=== PATIENT | female | born 1980 | race African-American/Black ===

== ENCOUNTER 2019-01-05 21:45 | Emergency (ER) | payer MEDICAID ==
[~2019-01-05] VITALS: Ht 167.6 cm; Wt 150.0 kg
[~2019-01-05 21:45] MED LIST: ARIP10TA8 PO; DIVA500T69 PO; FOLI1TAB15 PO; LEVE500T53 PO; MULT-29 PO; THIA100T67 PO
[2019-01-05] MEDS ORDERED: QUET300T2 PO (23:45)
[2019-01-05 23:55] LABS: GLUCOSE,POINT OF CARE 87 MG/DL (70-110)
[2019-01-06 00:26] LABS: BASOPHILS % (AUTO) 0.6 % (0.0-2.0); HEMATOCRIT 36.8 % (36-46); HEMOGLOBIN 11.8 g/dL (12.0-16.0); LYMPHOCYTES # (AUTO) 2.1 K/uL (1.0-4.8); LYMPHOCYTES % (AUTO) 24.9 % (22.0-44.0); MEAN CORPUSCULAR HGB CONC 32.1 G/dL (31.0-37.0); MEAN CORPUSCULAR VOLUME 81 fL (80-100); MONOCYTES # (AUTO) 0.6 K/uL (0.1-1.0); MONOCYTES % (AUTO) 7.1 % (2.0-9.0); NEUTROPHILS # (AUTO) 5.4 K/uL (1.8-7.7); NEUTROPHILS % (AUTO) 65.4 % (40.0-70.0); PLATELET COUNT (AUTO) 275 K/uL (150-450); RED BLOOD CELL COUNT(AUTO) 4.54 MIL/uL (4.00-5.20); RED CELL DISTRIBUTION WIDTH 17.6 % (11.5-14.5)
[2019-01-06 00:34] LABS: ANION GAP 6 mmol/L (8-16); CALCIUM, TOTAL 8.6 mg/dL (8.8-10.5); CARBON DIOXIDE 32 mmol/L (22-29); CHLORIDE 104 mmol/L (98-107); CREATININE 0.83 mg/dL (0.60-1.30); GLOMERULAR FILTR. RATE CALC > 60 mL/min (>60); GLUCOSE,RANDOM 78 mg/dL (70-110); POTASSIUM 3.7 mmol/L (3.5-5.1); SODIUM SERUM 142 mmol/L (136-145); UREA NITROGEN, BLOOD 19 mg/dL (7-18)
[2019-01-06 00:47] LABS: ALANINE AMINOTRANSFERASE 12 U/L (12-78); ALBUMIN 3.1 g/dL (3.4-5.0); ALKALINE PHOSPHATASE 70 U/L (46-116); ASPARTATE AMINOTRANSFERASE 11 U/L (15-37); BILIRUBIN,TOTAL 0.2 mg/dL (0.1-1.0); HCG,QUANTITATIVE < 1 mIU/mL (0-6); TOTAL PROTEIN, SERUM 6.7 g/dL (6.4-8.2)
[2019-01-06] MEDS ORDERED: LevETIRAcetam 500 MG TABLET PO ONE (01:15)
[2019-01-06 02:02] LABS: AMPHET/METH SCREEN,URINE NEGATIVE (NEGATIVE); BARBITURATE SCREEN, URINE NEGATIVE (NEGATIVE); BENZODIAZEPINES SCREEN,URINE NEGATIVE (NEGATIVE); CANNABINOID SCREEN,URINE NEGATIVE (NEGATIVE); COCAINE SCREEN,URINE NEGATIVE (NEGATIVE); METHADONE SCREEN, URINE NEGATIVE (NEGATIVE); OPIATE SCREEN,URINE NEGATIVE (NEGATIVE)
[2019-01-06 02:10] LABS: APPEARANCE,URINE CLEAR (CLEAR); BILIRUBIN,URINE NEGATIVE (NEGATIVE); GLUCOSE, URINE (UA) NEGATIVE (NEGATIVE); KETONES,URINE NEGATIVE (NEGATIVE); LEUKOCYTE ESTERASE ,URINE NEGATIVE (NEGATIVE); NITRATE,URINE NEGATIVE (NEGATIVE); OCCULT BLOOD,URINE SMALL (NEGATIVE); PH,URINE 7.5 (5.0-8.0); PROTEIN,URINE TRACE (NEGATIVE); UROBILINOGEN,URINE 0.2 mg/dL (<=1.0)
[2019-01-06 02:17] VITALS: BP 101/66
[2019-01-06 02:21] LABS: BACTERIA,URINE Rare /HPF (None Seen); RBC,URINE 0-2 /HPF (0-2); SQUAMOUS EPITHELIAL CELL,UR Few /LPF (None Seen)
[2019-01-06 02:30] LABS: PHENCYCLIDINE SCREEN,URINE NEGATIVE (NEGATIVE)
== END 2019-01-06 03:07 | disposition home or self-care (01) ==
LOC: EMS 21:46
DX: G40.909 Epilepsy, unspecified, not intractable, without status epilepticus (principal); F17.210 Nicotine dependence, cigarettes, uncomplicated; F15.90 Other stimulant use, unspecified, uncomplicated; I10 Essential (primary) hypertension; Z79.899 Other long term (current) drug therapy; Z88.1 Allergy status to other antibiotic agents
CPT/HCPCS: 36415; 70450; 80053; 80307; 81001; 82962; 84484; 84702; 85025; 93005; 99284; G0480

== ENCOUNTER 2020-08-19 15:09 | Emergency (ER) | payer MEDICAID ==
[~2020-08-19] VITALS: Ht 170.2 cm; Wt 147.0 kg
[~2020-08-19 15:09] MED LIST changes: -ARIP10TA8 PO; -DIVA500T69 PO; -FOLI1TAB15 PO; -MULT-29 PO; +QUET300T2 PO; -THIA100T67 PO
[2020-08-19] MEDS ORDERED: PredniSONE 20 MG TABLET PO ONE (17:00)
[2020-08-19] MEDS ORDERED: ALBUTEROL SULFATE HFA 90 MCG/PUFF 8 GM INHALER IH ONE (17:00)
[2020-08-19 17:10] VITALS: BP 120/66
== END 2020-08-19 17:20 | disposition home or self-care (01) ==
LOC: EMS 15:09
DX: J40 Bronchitis, not specified as acute or chronic (principal); I10 Essential (primary) hypertension; F17.210 Nicotine dependence, cigarettes, uncomplicated; F19.90 Other psychoactive substance use, unspecified, uncomplicated; Z88.5 Allergy status to narcotic agent
CPT/HCPCS: 71046; 94640; 99283; J7512; J3535

== ENCOUNTER 2022-01-08 08:57 | Emergency (ER) | payer MEDICAID ==
[~2022-01-08] VITALS: Ht 165.1 cm; Wt 159.1 kg
[~2022-01-08 08:57] MED LIST changes: +LEVE500T20 PO; -LEVE500T53 PO
[2022-01-08 11:28] VITALS: BP 140/89
== END 2022-01-08 14:15 | disposition home or self-care (01) ==
LOC: EMS 09:00
DX: F19.10 Other psychoactive substance abuse, uncomplicated (principal); J45.909 Unspecified asthma, uncomplicated; I10 Essential (primary) hypertension; F20.9 Schizophrenia, unspecified; R56.9 Unspecified convulsions; F17.210 Nicotine dependence, cigarettes, uncomplicated; Z88.5 Allergy status to narcotic agent
CPT/HCPCS: 99281; Z7502